=== PATIENT | male | born 1995 | race Hispanic/Latino ===

== ENCOUNTER 2018-12-26 10:26 | Emergency (ER) | payer MEDICAID, OTHER | END 2018-12-26 10:57 | disposition home or self-care (01) | LOC: EDH 10:26 | DX: L30.9 Dermatitis, unspecified (principal) | CPT/HCPCS: 99281 ==

== ENCOUNTER 2022-10-23 19:49 | Emergency (ER) | payer OTHER ==
[~2022-10-23] VITALS: Ht 167.6 cm; Wt 2.4 kg
[2022-10-23 21:19] LABS: BASOPHILS % (AUTO) 0.2 % (0.0-5.0); EOSINOPHILS % (AUTO) 0.1 % (0.0-8.0); HEMATOCRIT 43.5 % (42-54); LYMPHOCYTES % (AUTO) 9.5 % (21.0-51.0); MEAN CORPUSCULAR HEMOGLOBIN 29.2 pg (27.0-33.0); MEAN CORPUSCULAR HGB CONC 33.3 g/dL (32.0-36.0); MEAN CORPUSCULAR VOLUME 87.5 fL (79-99); MONOCYTES % (AUTO) 2.9 % (3.0-13.0); PLATELET COUNT (AUTO) 242 K/uL (130-400); RED BLOOD CELL COUNT(AUTO) 4.97 MIL/uL (4.50-6.20); RED CELL DISTRIBUTION WIDTH 13.2 % (11.0-15.5); WHITE BLOOD COUNT (AUTO) 9.4 K/uL (4.8-10.8)
[2022-10-23 21:27] LABS: POTASSIUM 3.6 mmol/L (3.5-5.1)
[2022-10-23 21:31] LABS: ALBUMIN 4.6 g/dL (3.5-5.0)
[2022-10-23] MEDS ORDERED: MORPHINE 4 MG SYG IVP ONE (22:00)
[2022-10-23] MEDS ORDERED: 0.9%NACL 1000ML 1,000 ML IV ONE (22:00)
[2022-10-23] MEDS ORDERED: ONDANSETRON 4MG INJ IVP ONE (22:00)
[2022-10-23 22:34] LABS: APPEARANCE,URINE CLEAR (CLEAR); BILIRUBIN,URINE NEGATIVE (NEGATIVE); COLOR,URINE LIGHT-YELLOW (YELLOW); GLUCOSE, URINE (UA) NEGATIVE (NEGATIVE); KETONES,URINE 5 mg/dL (NEGATIVE); LEUKOCYTE ESTERASE ,URINE NEGATIVE Leu/uL (NEGATIVE); NITRATE,URINE NEGATIVE (NEGATIVE); OCCULT BLOOD,URINE NEGATIVE (NEGATIVE); PROTEIN,URINE NEGATIVE (NEGATIVE); UROBILINOGEN,URINE 0.2 mg/dL (0.2-1.0)
[2022-10-23] MEDS ORDERED: FAMO20TA8 PO (23:21)
== END 2022-10-24 00:09 | disposition home or self-care (01) ==
LOC: EDH 19:49
DX: R74.8 Abnormal levels of other serum enzymes (principal); R10.13 Epigastric pain; R11.2 Nausea with vomiting, unspecified; Z20.822 Contact with and (suspected) exposure to COVID-19
CPT/HCPCS: 99285; 96374; 76705; 87635; 96361; 96375; 80053; 83690; 85025; 87804 ×2; 81003; 36415; C9803; J7030; J2405; J2270